=== PATIENT | male | born 1975 | race Caucasian/White ===

== ENCOUNTER 2021-08-28 17:23 | Emergency (ER) | payer SELFPAY ==
[2021-08-28] MEDS ORDERED: Ondansetron PF 4 MG/2 ML Vial ONE (17:57)
[2021-08-28 18:26] LABS: #Eosinphils 0.1 thou/uL (0.0-0.7); #Lymphocytes 0.7 thou/uL (1.20-3.40); #Monocytes 0.5 thou/uL (0.11-0.59); #Neutrophils 5.5 thou/uL (1.40-6.50); %Eosinophils 0.9 % (0.0-10.0); %Lymphocytes 10.5 % (21.0-51.0); %Monocytes 7.6 % (0.0-10.0); Hemoglobin 16.2 g/dL (14.0-18.0); Mean Corpuscular HGB CONC 35.3 g/dL (32.0-36.0); Mean Corpuscular Hemoglobin 33.2 pg (27.0-31.0); Mean Corpuscular Volume 94.2 fL (78.0-98.0); Platelet Count 220 thou/uL (130-400); RBC Distribution Width 12.3 % (11.5-14.5); Red Blood Cell (RBC) Count 4.89 mill/uL (4.70-6.10); White Blood Cell (WBC) Count 6.8 thou/uL (4.8-10.8)
[2021-08-28 18:42] LABS: Anion Gap 10 mmol/L (10-20); BUN (Urea Nitrogen) 10 mg/dL (8.9-20.6); Calc. Creatinine Clearance 0 mL/min (70-130); Carbon Dioxide 29 mmol/L (22-29); Chloride 103 mmol/L (98-107); Potassium 4.4 mmol/L (3.5-5.1); Sodium 138 mmol/L (136-145)
[2021-08-28 18:43] LABS: ALT (SGPT) 94 U/L (8-55); AST (SGOT) 51 U/L (5-34); Albumin 4.4 g/dL (3.5-5.0); Alkaline Phosphatase 140 U/L (40-110); Calcium 9.8 mg/dL (7.8-10.44); Glucose 138 mg/dL (70-105); Protein, Total 8.4 g/dL (6.0-8.3)
== END 2021-08-28 19:56 | disposition home or self-care (01) ==
LOC: ERS 17:23
DX: F15.10 Other stimulant abuse, uncomplicated (principal); F11.10 Opioid abuse, uncomplicated
CPT/HCPCS: 80053; 85025; 96374; J2405